=== PATIENT | female | born 1960 | race American Indian/Alaskan Native ===

== ENCOUNTER 2017-11-01 15:08 | Emergency (ER) | payer OTHER ==
[2017-11-01 15:16] VITALS: BP 133/90
--- NOTE | 2017-11-01 18:03 | XRay Report ---
FINAL REPORT EXAM: XR FOOT 3+V RT HISTORY: pain/swelling after fall TECHNIQUE: 3 views of the right foot PRIORS: None. FINDINGS: A minimally displaced nonangulated fracture is noted at the base of the little toe metatarsal. Multifocal slight degenerative change. No dislocation. Other bones are intact. IMPRESSION: Little toe metatarsal base fracture
--- NOTE | 2017-11-01 18:27 | Emergency Department Report ---
HPI - General Chief Complaint: Extremity Injury, Lower Time Seen by Provider: 11/01/17 18:14 - HPI HPI: 56-year-old female presents to the emergency department with complaint of right foot pain towards the outside of the midfoot. The patient stepped incorrectly and rolled her foot while at the airport in [place]. EMS was called there and they wrapped up her foot but the patient wanted to return home to [place] and went ahead and took her flight. Upon arriving [place] she came in to be seen. She has some mild swelling. She took some Tylenol for her symptoms prior to presentation without much relief. She denies any significant past medical history. ED Past Medical Hx - Past Medical History Previous Medical History?: No - Surgical History Past Surgical History?: Yes Additional Surgical History: GERD surgery. left hand surgery - Social History Smoking Status: Never Smoker Substance Use Type: None - Medications Home Medications: Home Medications Medication Instructions Recorded Confirmed Last Taken Type HYDROcodone/APAP 5-325 [Wat[place] 1 each PO Q6HR PRN #12 tablet 11/01/17 Unknown Rx 5/325] ED Review of Systems ROS: Stated complaint: FELL/FOOT SWOLLEN Other details as noted in HPI Comment: All other systems reviewed and negative Constitutional: denies: chills, fever Eyes: denies: eye pain, eye discharge, vision change ENT: denies: ear pain, throat pain Respiratory: denies: cough, shortness of breath, wheezing Cardiovascular: denies: chest pain, palpitations Gastrointestinal: denies: abdominal pain, nausea, diarrhea Genitourinary: denies: urgency, dysuria, discharge Musculoskeletal: arthralgia. denies: back pain Skin: denies: rash, lesions Neurological: denies: headache, weakness, paresthesias Physical Exam - Physical Exam Vital Signs: Vital Signs 11/01/17 15:11 Temperature 98.6 F Pulse Rate 71 Respiratory 16 Rate Blood Pressure 133/90 O2 Sat by Pulse 98 Oximetry Physical Exam: GENERAL: The patient is well-developed well-nourished. HENT: Normocephalic. Atraumatic. Patient has moist mucous membranes. EYES: Extraocular motions are intact. NECK: Supple. Trachea is midline. CHEST/LUNGS: Clear to auscultation. There is no respiratory distress noted. HEART/CARDIOVASCULAR: Regular. There is no tachycardia. There is no murmur. ABDOMEN: There is no abdominal distention. SKIN: Skin is warm and dry. NEURO: The patient is awake, alert, and oriented. The patient is cooperative. The patient has no focal neurologic deficits. The patient has normal speech. MUSCULOSKELETAL: There is some tenderness to palpation to the right lateral midfoot. Capillary refill is less than 2 seconds and pedal pulse +2 over 4 to the affected right foot. ED Course Vital Signs 11/01/17 15:11 Temperature 98.6 F Pulse Rate 71 Respiratory 16 Rate Blood Pressure 133/90 O2 Sat by Pulse 98 Oximetry ED Medical Decision Making - Radiology Data Radiology results: image reviewed interpreted by me: X-ray of the right foot shows a proximal fifth metatarsal fracture. - Medical Decision Making Patient presents with some right lateral foot pain after rolling her foot a few hours prior to presentation. X-ray shows a proximal fifth metatarsal base fracture that looks consistent with a dancer's fracture. She is neurovascularly intact. Placed in a postop surgical shoe and given crutches to remain nonweightbearing. She was given a prescription for pain medication and referrals for orthopedics. She will return to the ER with any worsening of her symptoms or any acute distress. - Differential Diagnosis fracture, dislocation, contusion, sprain Critical Care Time: No Critical care attestation.: If time is entered above; I have spent that time in minutes in the direct care of this critically ill patient, excluding procedure time. ED Disposition Clinical Impression: Fracture of fifth metatarsal bone of right foot Qualifiers: Encounter type: initial encounter Fracture type: closed Fracture alignment: nondisplaced Qualified Code(s): S92.354A - Nondisplaced fracture of fifth metatarsal bone, right foot, initial encounter for closed fracture Dancer's fracture Qualifiers: Encounter type: initial encounter Fracture type: closed Laterality: right Qualified Code(s): S99.191A - Other physeal fracture of right metatarsal, initial encounter for closed fracture Disposition: DC-01 TO HOME OR SELFCARE Is pt being admited?: No Condition: Stable Instructions: Foot Fracture in Adults (ED) Additional Instructions: Please follow up with an orthopedist or drafting detailer in the next few days. You can use rest, ice, compression and elevation. I recommend he remain nonweightbearing until follow-up with an orthopedist or drafting detailer. Return to the emergency department with any worsening of your symptoms or any acute distress. You have been prescribed a medication that is sedating and therefore should not be taken prior to driving, working, and responsible for children and in no way should be mixed with alcohol of any quantity. Prescriptions: HYDROcodone/APAP 5-325 [[place] 5/325] 1 each PO Q6HR PRN #12 tablet PRN Reason: Pain Referrals: KEIRA PHILLIP MD [Staff Physician] - 3-5 Days [facility] [Provider Group] - 3-5 Days Time of Disposition: 18:27
== END 2017-11-01 18:48 | disposition home or self-care (01) ==
LOC: ED 15:08
DX: S92.354A Nondisplaced fracture of fifth metatarsal bone, right foot, initial encounter for closed fracture (principal); S99.191A Other physeal fracture of right metatarsal, initial encounter for closed fracture; Z88.1 Allergy status to other antibiotic agents; X50.1XXA Overexertion from prolonged static or awkward postures, initial encounter; Y93.01 Activity, walking, marching and hiking; Y99.8 Other external cause status; Y92.520 Airport as the place of occurrence of the external cause